=== PATIENT | female | born 1980 | race Two or more races ===

== ENCOUNTER 2020-12-31 11:15 | Inpatient (IN) | payer OTHER ==
[~2020-12-31] VITALS: Ht 162.6 cm; Wt 102.1 kg
[2020-12-31] MEDS ORDERED: DESYREL PO (13:56)
[2020-12-31] MEDS ORDERED: ATARAX10 MG PO (13:56)
[2020-12-31] MEDS ORDERED: LEXAPRO5 MG PO (13:57)
[2020-12-31] MEDS ORDERED: COZAAR100 MG PO (13:57)
[2020-12-31] MEDS ORDERED: METFORMIN HCL500 M3 PO (13:57)
[2021-01-07] MEDS ORDERED: TRAZODONE HCL150 MG (09:22)
== END 2021-01-07 11:02 | disposition home or self-care (01) | DRG 743 ==
LOC: SURG-SUITE 01-06 05:55 → O/R 01-06 05:55 → SURH 01-06 07:00 → OB/GYN 01-06 11:12 → SURH 01-06 11:15 → SURG-SUITE 01-06 15:16
PROVIDERS: ADMIT Obstetrics & Gynecology Gynecologic Oncology; ATTEND Obstetrics & Gynecology Gynecologic Oncology
PROC: 0UB74ZZ Excision of Bilateral Fallopian Tubes, Percutaneous Endoscopic Approach (ICD-10-PCS; 2021-01-06)
PROC: 0UT94ZZ Resection of Uterus, Percutaneous Endoscopic Approach (ICD-10-PCS; principal; 2021-01-06 07:00)
DX: D25.1 Intramural leiomyoma of uterus (principal); N85.8 Other specified noninflammatory disorders of uterus; N72 Inflammatory disease of cervix uteri; N83.8 Other noninflammatory disorders of ovary, fallopian tube and broad ligament

== ENCOUNTER 2021-01-09 16:12 | Emergency (ER) | payer OTHER ==
[~2021-01-09] VITALS: Ht 162.6 cm; Wt 102.1 kg
[~2021-01-09 16:12] MED LIST: ATARAX10 MG PO; COZAAR100 MG PO; DESYREL PO; LEXAPRO5 MG PO; METFORMIN HCL500 M3 PO; TRAZODONE HCL150 MG
[2021-01-09] MEDS ORDERED: MACROBID 100 M100 MG PO (20:37)
== END 2021-01-09 20:47 | disposition home or self-care (01) ==
LOC: ER 16:12
DX: R50.82 Postprocedural fever (principal); J95.89 Other postprocedural complications and disorders of respiratory system, not elsewhere classified; J98.11 Atelectasis

== ENCOUNTER 2021-01-11 14:55 | Inpatient (IN) | payer OTHER ==
[~2021-01-11] VITALS: Ht 162.6 cm; Wt 102.1 kg
[~2021-01-11 14:55] MED LIST changes: +MACROBID 100 M100 MG PO
[2021-01-16] MEDS ORDERED: LEVOFLOXACIN750 MG PO (12:45)
[2021-01-16] MEDS ORDERED: POM (MEDICAMENTO EN PO (12:45)
[2021-01-16] MEDS ORDERED: TRAZODONE HCL50 MG PO (12:45)
[2021-01-16] MEDS ORDERED: LOSARTAN POTAS100 MG PO (12:45)
[2021-01-16] MEDS ORDERED: INTEGRA PLUS C1 EACH PO (12:45)
[2021-01-16] MEDS ORDERED: INTESTINEX680 M1 PO (12:45)
== END 2021-01-16 13:04 | disposition home or self-care (01) | DRG 690 ==
LOC: OB/GYN 14:55
PROVIDERS: ADMIT Internal Medicine; ATTEND Internal Medicine
PROC: BT43ZZZ Ultrasonography of Bilateral Kidneys (ICD-10-PCS; principal; 2021-01-12)
DX: N39.0 Urinary tract infection, site not specified (principal); R50.9 Fever, unspecified; I10 Essential (primary) hypertension; F32.9 Major depressive disorder, single episode, unspecified; Z20.822 Contact with and (suspected) exposure to COVID-19